=== PATIENT | female | born 1995 | race Caucasian/White ===

== ENCOUNTER 2019-01-14 17:46 | Emergency (ER) | payer MEDICAID ==
--- NOTE | 2019-01-14 17:49 | ER Report ---
History and Physical Time Seen By MD: 17:48 (OMKAR ZELAYA DO) HPI/ROS CHIEF COMPLAINT: Vaginal bleeding HISTORY OF PRESENT ILLNESS: Patient is a 24-year-old female at approximately 16 weeks' gestational age here with complaints of new onset vaginal bleeding which started shortly prior to arrival. Patient denies prior hi story of vaginal bleeding during . Patient was advised to proceed to the emergency department for evaluation. Patient reports that her bleeding has slowed down since time of onset. Orthostatics were stable at time of arrival. Patient describes that she has been having painless vaginal bleeding. REVIEW OF SYSTEMS: Constitutional: No fever, no chills. Eyes: No discharge. ENT: No sore throat. Cardiovascular: No chest pain, no palpitations. Respiratory: No cough, no shortness of breath. Gastrointestinal: No abdominal pain, no vomiting. Genitourinary: No hematuria, + vaginal bleeding Musculoskeletal: No back pain. Skin: No rashes. Neurological: No headache. (OMKAR ZELAYA DO) Allergies: Coded Allergies: No Known Allergies (Verified Allergy, Unknown, 01/14/19) Home Meds Active Scripts Ondansetron 4 Mg Odt (ONDANSETRON 4 MG ODT) 4 Mg Tab.rapdis, 4 MG PO Q6H PRN for NAUSEA/VOMITING, #15 TAB Prov:SHANNON BOOTHE DO 01/14/19 Reported Medications Vits W-Ca,Fe,Fa(<1MG) ( VITAMINS) 1 Each Tablet, 1 EA PO DAILY, TAB 01/14/19 Constitutional Vital Sign - Last 24 Hours 01/14/19 01/14/19 01/14/19 01/14/19 18:16 18:19 18:20 18:30 Pulse 99 84 112 B/P (MAP) 122/91 (101) 125/90 (102) 126/73 (90) 115/77 (90) 01/14/19 01/14/19 01/14/19 01/14/19 18:33 18:46 18:51 19:00 Temp 98.3 Pulse 112 86 84 Resp 14 B/P (MAP) 120/85 112/73 (86) Pulse Ox 95 95 98 O2 Delivery Room Air 01/14/19 01/14/19 01/14/19 01/14/19 19:06 19:21 19:36 19:51 Pulse 83 86 ? Pulse Ox 99 94 01/14/19 01/14/19 01/14/19 01/14/19 20:06 20:21 20:36 20:41 Pulse 93 86 82 102 Pulse Ox 98 91 97 97 01/14/19 20:56 Pulse 75 Pulse Ox 96 (KINSHANNON M DO) Physical Exam General Appearance: The patient is alert, has no immediate need for airway protection and no signs of toxicity. NAD Eyes: Pupils equal and round no pallor or injection. ENT, Mouth: Mucous membranes are moist. Respiratory: There are no retractions, lungs are clear to auscultation. Cardiovascular: Regular rate and rhythm. Gastrointestinal: Abdomen is soft and non tender, no masses, bowel sounds normal. Neurological: No focal neuro findings Skin: Warm and dry, no rashes. Musculoskeletal: Neck is supple non tender. Extremities are nontender, nonswollen and have full range of motion. DIFFERENTIAL DIAGNOSIS: After history and physical exam differential diagnosis was considered for vaginal bleeding including but not limited to ectopic , menses, miscarriage, and dysfunctional uterine bleeding. (OMKAR ZELAYA DO) Medical Decision Making Data Points Result Diagram: 01/14/19 1828 01/14/19 1828 Laboratory Hematology Test 01/14/19 18:11 01/14/19 18:28 Urine Color Red Urine Clarity Cloudy Urine pH 6.0 pH (4.8-9.5) Urine Specific [place] 1.024 Urine Protein 30 mg/dL (NEGATIVE) Urine Glucose (UA) Negative mg/dL (NEGATIVE) Urine Ketones Negative mg/dL (NEGATIVE) Urine Blood Large (NEGATIVE) Urine Nitrite Negative (NEGATIVE) Urine Bilirubin Negative (NEGATIVE) Urine Urobilinogen Negative mg/dL (0.2-1.9) Urine Leukocyte Esterase Trace (NEGATIVE) Urine RBC 135 /HPF (0-2/HPF) Urine WBC 21 /HPF (0-5/HPF) Urine Squamous Epithelial Cells Many /LPF (</=FEW) Urine Bacteria Few /HPF (NONE-FEW) Urine Mucus Few /HPF (NONE-FEW) Red Blood Count 4.82 M/uL (4.17-5.56) Mean Corpuscular Volume 87.1 fL (80.0-96.0) Mean Corpuscular Hemoglobin 29.3 pg (26.0-33.0) Mean Corpuscular Hemoglobin Concent 33.6 g/dL (32.0-36.0) Red Cell Distribution Width 15.6 % (11.5-14.5) Mean Platelet Volume 7.2 fL (7.2-11.1) Neutrophils (%) (Auto) 73.4 % (39.4-72.5) Lymphocytes (%) (Auto) 17.9 % (17.6-49.6) Monocytes (%) (Auto) 6.2 % (4.1-12.4) Eosinophils (%) (Auto) 2.0 % (0.4-6.7) Basophils (%) (Auto) 0.5 % (0.3-1.4) Nucleated RBC Relative Count (auto) 0.0 /100WBC Neutrophils # (Auto) 7.2 K/uL (2.0-7.4) Lymphocytes # (Auto) 1.8 K/uL (1.3-3.6) Monocytes # (Auto) 0.6 K/uL (0.3-1.0) Eosinophils # (Auto) 0.2 K/uL (0.0-0.5) Basophils # (Auto) 0.0 K/uL (0.0-0.1) Nucleated RBC Absolute Count (auto) 0.00 K/uL Prothrombin Time 12.6 seconds (12.0-14.4) Prothromb Time International Ratio 0.94 Activated Partial Thromboplast Time 32 seconds (23-35) Sodium Level 136 mmol/L (137-145) Potassium Level 3.7 mmol/L (3.5-5.0) Chloride Level 101 mmol/L (98-107) Carbon Dioxide Level 26 mmol/L (22-31) Blood Urea Nitrogen 12 mg/dl (7-18) Creatinine 0.50 mg/dl (0.52-1.04) Glomerular Filtration Rate Calc > 60.0 Random Glucose 88 mg/dl (75-110) Calcium Level 9.0 mg/dl (8.4-10.2) Total Bilirubin 0.2 mg/dl (0.2-1.3) Aspartate Amino Transf (AST/SGOT) 14 U/L (0-35) Alanine Aminotransferase (ALT/SGPT) 13 U/L (0-56) Alkaline Phosphatase 44 U/L (0-126) Total Protein 7.9 g/dl (6.3-8.2) Albumin 4.3 g/dl (3.5-5.0) Human Chorionic Gonadotropin, Quant 38071 mIU/ml Chemistry Test 01/14/19 18:11 01/14/19 18:28 Urine Color Red Urine Clarity Cloudy Urine pH 6.0 pH (4.8-9.5) Urine Specific [place] 1.024 Urine Protein 30 mg/dL (NEGATIVE) Urine Glucose (UA) Negative mg/dL (NEGATIVE) Urine Ketones Negative mg/dL (NEGATIVE) Urine Blood Large (NEGATIVE) Urine Nitrite Negative (NEGATIVE) Urine Bilirubin Negative (NEGATIVE) Urine Urobilinogen Negative mg/dL (0.2-1.9) Urine Leukocyte Esterase Trace (NEGATIVE) Urine RBC 135 /HPF (0-2/HPF) Urine WBC 21 /HPF (0-5/HPF) Urine Squamous Epithelial Cells Many /LPF (</=FEW) Urine Bacteria Few /HPF (NONE-FEW) Urine Mucus Few /HPF (NONE-FEW) White Blood Count 9.8 k/uL (4.5-11.0) Red Blood Count 4.82 M/uL (4.17-5.56) Hemoglobin 14.1 g/dL (12.0-16.0) Hematocrit 42.0 % (34.0-47.0) Mean Corpuscular Volume 87.1 fL (80.0-96.0) Mean Corpuscular Hemoglobin 29.3 pg (26.0-33.0) Mean Corpuscular Hemoglobin Concent 33.6 g/dL (32.0-36.0) Red Cell Distribution Width 15.6 % (11.5-14.5) Platelet Count 432 K/uL (150-450) Mean Platelet Volume 7.2 fL (7.2-11.1) Neutrophils (%) (Auto) 73.4 % (39.4-72.5) Lymphocytes (%) (Auto) 17.9 % (17.6-49.6) Monocytes (%) (Auto) 6.2 % (4.1-12.4) Eosinophils (%) (Auto) 2.0 % (0.4-6.7) Basophils (%) (Auto) 0.5 % (0.3-1.4) Nucleated RBC Relative Count (auto) 0.0 /100WBC Neutrophils # (Auto) 7.2 K/uL (2.0-7.4) Lymphocytes # (Auto) 1.8 K/uL (1.3-3.6) Monocytes # (Auto) 0.6 K/uL (0.3-1.0) Eosinophils # (Auto) 0.2 K/uL (0.0-0.5) Basophils # (Auto) 0.0 K/uL (0.0-0.1) Nucleated RBC Absolute Count (auto) 0.00 K/uL Prothrombin Time 12.6 seconds (12.0-14.4) Prothromb Time International Ratio 0.94 Activated Partial Thromboplast Time 32 seconds (23-35) Glomerular Filtration Rate Calc > 60.0 Calcium Level 9.0 mg/dl (8.4-10.2) Total Bilirubin 0.2 mg/dl (0.2-1.3) Aspartate Amino Transf (AST/SGOT) 14 U/L (0-35) Alanine Aminotransferase (ALT/SGPT) 13 U/L (0-56) Alkaline Phosphatase 44 U/L (0-126) Total Protein 7.9 g/dl (6.3-8.2) Albumin 4.3 g/dl (3.5-5.0) Human Chorionic Gonadotropin, Quant 88204 mIU/ml Coagulation Test 01/14/19 18:28 Prothrombin Time 12.6 seconds Prothromb Time International Ratio 0.94 Activated Partial Thromboplast Time 32 seconds Urinalysis Test 01/14/19 18:11 Urine Color Red Urine Clarity Cloudy Urine pH 6.0 pH (4.8-9.5) Urine Specific [place] 1.024 Urine Protein 30 mg/dL (NEGATIVE) Urine Glucose (UA) Negative mg/dL (NEGATIVE) Urine Ketones Negative mg/dL (NEGATIVE) Urine Blood Large (NEGATIVE) Urine Nitrite Negative (NEGATIVE) Urine Bilirubin Negative (NEGATIVE) Urine Urobilinogen Negative mg/dL (0.2-1.9) Urine Leukocyte Esterase Trace (NEGATIVE) Urine RBC 135 /HPF (0-2/HPF) Urine WBC 21 /HPF (0-5/HPF) Urine Squamous Epithelial Cells Many /LPF (</=FEW) Urine Bacteria Few /HPF (NONE-FEW) Urine Mucus Few /HPF (NONE-FEW) (SHANNON BOOTHE DO) EKG/Imaging Imaging Results: Ultrasound of the transvaginal and transabdominal greater than 14 weeks was obtained. The results of the study are Cervix ultrasound Indication: Vaginal bleeding. Comparison: None. FINDINGS: Placenta: Fundal without focal normality. Heart rate: 150 at seven minutes. age from the OB ultrasound 17 weeks and three days. Amniotic fluid index: Not measured. Subjectively normal. Cervix is closed and measures 4.4 cm. No funneling, placenta previa, vasa previa or cerclage.. IMPRESSION: Closed cervix measuring 4.4 cm. No funneling. OB Ultrasound > 14 weeks with anatomic evaluation HISTORY: Vaginal bleeding. 16 weeks . COMPARISON STUDIES: None available FINDINGS: Intrauterine gestations: one presentation: Transverse. The head is in the right side of the bicornuate uterus with the feet on the left side. heart rate: 150 bpm Amniotic fluid index: Not measured. Subjectively normal. Placenta: Fundal without previa. 8.3 cm from the cervical os. Uterus: gravid, otherwise normal Maternal adnexa: Right ovary is visualized and appears normal. Small cyst. Left ovary was not visualized. Cervix: 4.4 cm and closed. Gestational Parameters: BPD: 3.6 cm 17 weeks and zero days HC: 13.5 cm 17 weeks and zero days AC: 12.1 cm 17 weeks and six days FL: 2.5 cm 17 weeks and three days Average ultrasound age (AUA): 17 weeks and three days RENO: 06/21/2019 by ultrasound and 07/02/2019 clinically. Estimated weight (EFW): 198 g EFW: Greater than 98 percentile Anatomic Survey: Limited survey. Portions of the brain face visualized are normal in some portions are obscured. Four-chamber heart appeared normal. The stomach, kidneys, bladder, three-vessel cord, placental cord insertion, arms and legs appear to be normal. The other structures are not well visualized. IMPRESSION: 1. Single live intrauterine gestation; estimated ultrasound age 17 weeks and three days.. 2. No indication of acute abnormality. 3. 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 The head of the fetus of the right side and the feet on left side. 4. Placenta is fundal without focal normality. 5. Limited evaluation shows no gross abnormality is however some structures not visualized. This could be followed up on the next OB ultrasound. 6. The estimated weight is greater than 98 percentile. 7. Other limited findings as above. The study was read by the radiologist. I viewed the images myself on the PACS system. (SHANNON BOOTHE DO) ED Course/Re-evaluation ED Course Patient is a 24-year-old female at 16 weeks gestation with complaints of new onset of vaginal bleeding which was painless and has since slowed down. Orthostatics are stable. Patient was given IV fluid bolus, transvaginal ultrasound was ordered. CBC was stable. Patient was signed out to Dr. Boothe at shift change pending further workup Decision to Disposition Date: Jan 14, 2019 Decision to Disposition Time: 19:00 (OMKAR ZELAYA DO) ED Course Care was assumed at shift change from Dr. Harry with ultrasounds pending. The ultrasounds were unremarkable. The results were discussed with the patient. Patient was advised bed rest and increase fluid intake and follow-up with [facility]OC[facility] on Thursday. Patient and her felt that she should be admitted. I discussed the case with Dr. Yoon Hernandez, [facility] ASSOCIATE on-call. She will come speak with the patient. 01/14/2019 9:33:19 pm case discussed with [facility]TENS[facility] ASSOCIATE on-call, Dr. Yoon Hernandez. She will come discussed options with the patient, considering observation/admission as appropriate. Decision to Disposition Date: Jan 14, 2019 Decision to Disposition Time: 21:33 (SHANNON BOOTHE DO) Depart Departure Latest Vital Signs Vital Signs Date Time Temp Pulse Resp B/P (MAP) Pulse Ox O2 Delivery O2 Flow Rate FiO2 01/14/19 20:56 75 96 01/14/19 19:00 112/73 (86) 01/14/19 18:33 98.3 14 Room Air (SHANNON BOOTHE DO) Impression: Primary Impression: Vagina bleeding Additional Impression: 16 weeks gestation of Condition: Improved Disposition: HOME OR SELF-CARE New Scripts Ondansetron 4 Mg Odt (ONDANSETRON 4 MG ODT) 4 Mg Tab.rapdis 4 MG PO Q6H PRN for NAUSEA/VOMITING, #15 TAB Prov: SHANNON BOOTHE DO 01/14/19 Patient Instructions: Threatened Miscarriage (ED) Additional Instructions: Remain at bedrest for the weekend. Follow up with your [facility]TENSION ASSOCIATE early next week Use Zofran as needed for nausea control Problem Qualifiers OMKAR ZELAYA DO Jan 14, 2019 17:49 SHANNON BOOTHE DO Jan 14, 2019 20:30
[2019-01-14] MEDS ORDERED: NS(*) 0.9% 1000 ML BAG 1,000 ML IV ONE (17:50)
[2019-01-14 18:36] LABS: PLATELET COUNT, AUTOMATED 432 K/uL (150-450)
[2019-01-14] MEDS ORDERED: PREN-127 PO (18:37)
[2019-01-14 18:47] LABS: INR 0.94
[2019-01-14 19:00] VITALS: BP 112/73
[2019-01-14] MEDS ORDERED: ACETAMINOPHEN 325 MG TAB PO ONE (21:00)
--- NOTE | 2019-01-14 21:04 | RADIOLOGY IMAGING REPORT ---
FACILITY: [facility] PATIENT NAME: Marely Alvarez : 1995 MR: [id number] V: [id number] EXAM DATE: ORDERING PHYSICIAN: OMKAR ZELAYA TECHNOLOGIST: Location: [facility] [place] Patient: Marely Alvarez : 1995 Visit/Account:[id number] Date of Sevice: 01/14/2019 OB Ultrasound > 14 weeks with anatomic evaluation HISTORY: Vaginal bleeding. 16 weeks . COMPARISON STUDIES: None available FINDINGS: Intrauterine gestations: one presentation: Transverse. The head is in the right side of the bicornuate uterus with the feet on the left side. heart rate: 150 bpm Amniotic fluid index: Not measured. Subjectively normal. Placenta: Fundal without previa. 8.3 cm from the cervical os. Uterus: gravid, otherwise normal Maternal adnexa: Right ovary is visualized and appears normal. Small cyst. Left ovary was not visua lized. Cervix: 4.4 cm and closed. Gestational Parameters: BPD: 3.6 cm 17 weeks and zero days HC: 13.5 cm 17 weeks and zero days AC: 12.1 cm 17 weeks and six days FL: 2.5 cm 17 weeks and three days Average ultrasound age (AUA): 17 weeks and three days RENO: 06/21/2019 by ultrasound and 07/02/2019 clinically. Estimated weight (EFW): 198 g EFW: Greater than 98 percentile Anatomic Survey: Limited survey. Portions of the brain face visualized are normal in some portions are obscured . Four-chamber heart appeared normal. The stomach, kidneys, bladder, three-vessel cord, place ntal cord insertion, arms and legs appear to be normal. The other structures are not well visualized . IMPRESSION: 1. Single live intrauterine gestation; estimated ultrasound age 17 weeks and three days.. 2. No indication of acute abnormality. 3. 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 The head of the fetus of the right side and the feet on left side. 4. Placenta is fundal without focal normality. 5. Limited evaluation shows no gross abnormality is however some structures not visualized. T his could be followed up on the next OB ultrasound. 6. The estimated weight is greater than 98 percentile. 7. Other limited findings as above. Report Dictated By: Shahriar Alcala at 01/14/2019 8:54 PM Report E-Signed By: hSahriar Alcala at 01/14/2019 9:00 PM WSN:[email or web address]
--- NOTE | 2019-01-14 21:07 | RADIOLOGY IMAGING REPORT ---
[place] [facility] [place] Marely Alvarez : 1995 MR: [id number] V: [id number] EXAM DATE: ORDERING PHYSICIAN: OMKAR ZELAYA TECHNOLOGIST: Location: [facility] Patient: Marely Alvarez : 1995 Visit/Account:[id number] Date of Sevice: 01/14/2019 Cervix ultrasound Indication: Vaginal bleeding. Comparison: None. FINDINGS: Placenta: Fundal without focal normality. Heart rate: 150 at seven minutes. age from the OB ultrasound 17 weeks and three days. Amniotic fluid index: Not measured. Subjectively normal. Cervix is closed and measures 4.4 cm. No funneling, placenta previa, vasa previa or cerclage.. IMPRESSION: Closed cervix measuring 4.4 cm. No funneling. Report Dictated By: Shahriar Alcala at 01/14/2019 9:00 PM Report E-Signed By: Shahriar Alcala at 01/14/2019 9:02 PM WSN:[id number]
[2019-01-14] MEDS ORDERED: ONDA4TAB9 PO (22:03)
[2019-01-14] MEDS ORDERED: ONDANSETRON 4 MG ODT TH SL ONE (22:05)
--- NOTE | 2019-01-14 22:47 | History & Physical ---
History of Present Illness Age of Patient: 24 : 4 Para or TPAL: 2103 EDC per LMP: Jul 02, 2019 Estimated Gestational Age: 15.6 Chief Complaint painless vaginal bleeding History of Present Illness Ms. Alvarez is a 24yo at 15.6 who presents to ED after calling for painless vaginal bleeding. Reports that she was not particularly active today, though has three children under age 5 at home. She reports noticing that her underwear felt wet, and that she had bled onto her underwear and the shorts she was wearing. She states that it looked like "a lot" of blood, dark red in color. She went to the bathroom after she noticed the blood and saw a few drops in the toilet. After wiping, she noted dark red blood on the toilet paper, but felt like any active bleeding stopped. She denied any pain save for headache prior to the bleeding. She denies any cramping abdominal pain. No current nausea/emesis. No fevers/chills. She reports that this has been a relatively uncomplicated save for significantly more nausea and fatigue than she experienced in her last pregnancies. History Patient's Blood Type: A Positive Group B Strep Screen: Unknown Obstetrical History: FT x 2, uncomplicated 36 week x 1, spontaneous labor Past Medical History: Denies significant medical history. Allergies: Coded Allergies: No Known Allergies (Verified Allergy, Unknown, 01/14/19) Social History: In a supportive relationship with her partner, and father of her three children. No T/E/D. Med Rec Home Meds Active Scripts Ondansetron 4 Mg Odt (ONDANSETRON 4 MG ODT) 4 Mg Tab.rapdis, 4 MG PO Q6H PRN for NAUSEA/VOMITING, #15 TAB Prov:SHANNON SANDERSON DO 01/14/19 Reported Medications Vits W-Ca,Fe,Fa(<1MG) ( VITAMINS) 1 Each Tablet, 1 EA PO DAILY, TAB 01/14/19 Review of Systems All Systems Reviewed/Normal: Yes, Except as Noted Constitutional: No Fever, No Weight Loss, No Weight Gain, No Chills, No Night Sweats, No Other Neurological: No Syncope, No Confusion, No Weakness, No Dizziness, No Slurred Speech, No Other Eyes: No Vision Change, No Loss of Vision, No Photophobia, No Other ENT: No Hearing Loss, No Sinus Congestion, No Sore Throat, No Ear Ache, No Tinnitus, No Other Respiratory: No Shortness of Breath, No Cough, No Wheezing, No Other Gastrointestinal: No Nausea, No Vomiting, No Diarrhea, No Dysphagia, No Constipation, No Early Satiety, No Hematemesis, No Hematochezia, No Melena, No Abdominal Pain, No Other Genitourinary: Other (vaginal bleeding); No Dysuria, No Hematuria, No Urinary Incontinence Musculoskeletal: No Pain, No Sprain, No Strain, No Impaired Mobility, No Other Psychiatric: No Depression, No Anxiety, No Other Exam General Exam Vital Signs Vital Signs Date Time Temp Pulse Resp B/P (MAP) Pulse Ox O2 Delivery O2 Flow Rate FiO2 01/14/19 20:56 75 96 01/14/19 19:00 112/73 (86) 01/14/19 18:33 98.3 14 Room Air General Apperance: Alert/Awake/No Acute Distress Neuro: No Gross deficits Abdomen: Soft, Non-Tender, Non-Distended, Gravid - Non-Tender Extremities: No Cyanosis,Clubbing or Edema Integumentary: Skin Intact without Lesions or Rash Psychological: Alert & Oriented X3, Appropriate Mood & Affect Medical Decision Making Data Points Result Diagram: 01/14/19182701/14/191827 Imaging Ultrasound/Imaging Ultrasound (transvaginal and transabdominal views): Gonzalez IUP, bicornuate uterus, cervical length 4.0cm, closed. No e/o subchorionic hematoma, placental abruption. EGA 17.3 Pre-Admit Course Medical Record Review: Yes VTE Prophylasis: Adult Deep Vein Thrombosis/Pulmonary: No Assessment and Plan Problems: (1) Vagina bleeding Status: Acute Assessment & Plan: 24yo at 15.6 by RENO 06/21/19, with painless vaginal bleeding. RH positive. and maternal status reassuring. Bleeding has significantly slowed, patient is hemodynamically stable, and ultrasound reassuring. Patient also reports ongoing significant nausea/emesis at home as well as bothersome facial rash. Plan: discharge home on pelvic rest and bleeding precautions rx given for Zofran for nausea by ED physician recommend hydrocortisone ointment for facial rash patient instructed to call OB office on Thursday for f/u appointment. NATASHA HERNADEZ MD Jan 14, 2019 22:47
== END 2019-01-14 22:08 | disposition home or self-care (01) ==
LOC: ER 17:52
DX: O20.9 Hemorrhage in early pregnancy, unspecified (principal); Z3A.16 16 weeks gestation of pregnancy
CPT/HCPCS: 76805; 76817; 81001; 84702; 85025; 85610; 85730; 86900; 86901; J7030; 82040; 82247; 82310; 82374; 82435; 82565; 82947; 84075; 84132; 84155; 84295; 84450; 84460; 84520

== ENCOUNTER 2019-06-03 14:39 | Outpatient (CLI) | payer MEDICAID ==
[~2019-06-03] VITALS: Ht 167.6 cm; Wt 88.5 kg
[~2019-06-03 14:39] MED LIST: ONDA4TAB9 PO; PREN-127 PO
[2019-06-03 15:58] VITALS: BP 121/80; Ht 167.6 cm; Wt 88.5 kg
== END 2019-06-03 17:10 | disposition home or self-care (01) ==
LOC: L&D 14:39 → UNDOADMIN 14:39 → OB 14:39 → UNDODISIN 17:10 → L&D 17:10 → EDSTATUS 06-09 07:17
PROVIDERS: ATTEND Obstetrics & Gynecology
DX: O26.893 Other specified pregnancy related conditions, third trimester (principal); Z3A.36 36 weeks gestation of pregnancy
CPT/HCPCS: 59025

== ENCOUNTER 2019-06-15 05:18 | Inpatient (IN) | payer MEDICAID ==
[~2019-06-15] VITALS: Ht 165.1 cm; Wt 89.4 kg
[2019-06-15] MEDS ORDERED: LR(*) 1000 ML BAG 1,000 ML IV PRN (05:39)
[2019-06-15] MEDS ORDERED: OXYTOCIN 30 UNIT/NS 500 ML 500 ML IV PRN ×3 (05:39→12:20)
[2019-06-15] MEDS ORDERED: FAMOTIDINE(*) 20MG/50ML PREMIX 50 ML IVPB PRN (05:39)
[2019-06-15] MEDS ORDERED: LIDOCAINE/SOD BICARB 8.4% SYR SC PRN (05:40)
[2019-06-15] MEDS ORDERED: LIDOCAINE 1% LOCAL 300 MG/30ML INJ PRN (05:40)
[2019-06-15] MEDS ORDERED: METOCLOPRAMIDE 10 MG/2 ML SDV IVP PRN (05:40)
[2019-06-15] MEDS ORDERED: FLUSH 10 ML SYR IVP PRN (05:40)
[2019-06-15] MEDS ORDERED: fentaNYL CITR 100 MCG/2 ML AMP IVP PRN (05:40)
[2019-06-15 06:45] VITALS: BP 121/63; Ht 165.1 cm; Wt 89.4 kg
[2019-06-15 06:52] LABS: PLATELET COUNT, AUTOMATED 306 K/uL (150-450)
[2019-06-15] MEDS ORDERED: ACETAMINOPHEN 325 MG TAB PO PRN (16:55)
[2019-06-15] MEDS ORDERED: LANOLIN OINT 7 GM TUBE TP PRN (16:55)
[2019-06-15] MEDS ORDERED: BENZOCAINE 20% 60 ML BTL TP PRN (16:55)
[2019-06-15] MEDS ORDERED: GLYCERIN/WITCH HAZEL LEAF 1 PK TP PRN (16:55)
[2019-06-15] MEDS ORDERED: MAGNESIUM HYDROXIDE* 30ML UDCP PO PRN (16:55)
[2019-06-15] MEDS ORDERED: HYDROCORTISONE 2.5% CR 30GM TB PR PRN (16:55)
[2019-06-15] MEDS: APAP/HYDROCODONE 325/5 TAB PO PRN ×2 (17:10→22:07)
[2019-06-15] MEDS: IBUPROFEN 800 MG TAB PO SCH (17:10)
[2019-06-15] MEDS ORDERED: MISOPROSTOL 200 MCG TAB PR ONE (17:15)
--- NOTE | 2019-06-15 17:16 | OB Delivery Note ---
Delivery Note Vaginal Delivery Type: Spont. Vaginal Delivery Delivery Date: Jun 15, 2019 Delivery Time: 15:55 Estimated Gestational Age(wks): 38.4 Delivery Anesthesia: Other (unmedicated ) Sex: Female Weight (gms): 7.10 Apgars: 1 Minute (8), 5 Minute (9) Estimated Blood Loss: 250 Notes: I was called to delivery room by nurses because pts primary Winderman was unavailable. When I presented to the room pt was in visible distress due to pain. SVE showed that the patient was completed dilated with bulging bag and +1 station. Pt requested AROM to expedite delivery. Request granted. AROM without difficulty and clear fluid. The patient immediately had desire to push and spontaneously delivered a viable female in the ENEDELIA position. Nose and mouth were bulb suctioned and 3VC clamped and cut. placed on mom's chest. No laceration were noted. Placenta delivered spontaneously with trailing membranes that were teased out using ring forceps. Pitocin was increased to bolus rate. Uterus firm below umbilicus. EBL 250 cc. I performed entire delivery and repair unassisted. Act Tutor in Attendence: TITO Guevara DO Jun 15, 2019 17:16
[2019-06-15 20:15] VITALS: BP 125/83
[2019-06-15] MEDS: DOCUSATE CALCIUM 240 MG CAP PO SCH (22:07)
[2019-06-16 01:00] VITALS: BP 99/55
[2019-06-16] MEDS: IBUPROFEN 800 MG TAB PO SCH ×3 (02:45→16:57)
[2019-06-16 07:35] VITALS: BP 117/64
--- NOTE | 2019-06-16 08:45 | OB/GYN Progress Note ---
OB Subjective Progress Notes Subjective Having pain in shoulders and upper chest but no SOB. Has improved over night. No nausea. Incisional pain tolerable. Bleeding light. GI: NEG Nausea : Voiding Well Pain: Mild OB Objective Physical Exam Vital Signs Date Time Temp Pulse Resp B/P (MAP) Pulse Ox O2 Delivery O2 Flow Rate FiO2 06/16/19 07:35 98.4 73 18 117/64 (81) 96 Room Air Intake and Output 06/16/19 07:04 Intake Total 2200 ml Balance 2200 ml Intake Oral 1000 ml IV Total 1200 ml # Voids 3 General Appearance: Alert/Awake/No Acute Distress Neurological: No Gross deficits Cardiovascular: Normal Rhythm & Peripheral Pulses, Regular Rate and Rhythm Respiratory: No Respiratory Distress, Clear to Auscultation Abdomen: Soft, Non-Tender, Non-Distended, Fundus Firm Incision: Clean, Dry, Intact, Dermabond Extremities: No Cyanosis,Clubbing or Edema Integumentary: Skin Intact without Lesions or Rash Psychological: Alert & Oriented X3, Appropriate Mood & Affect Result Diagram: 06/16/19 0651 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 Encouraged ambulation today and should continue to improve. If not will consider PE eval. (3) care and examination immediately after delivery GUERA GONZALEZ MD Jun 16, 2019 08:45
[2019-06-16] MEDS ORDERED: IBUP800T37 PO (09:17)
--- NOTE | 2019-06-16 09:17 | OB/GYN Progress Note ---
OB Subjective Progress Notes Subjective Feeling well. Pain well controlled and bleeding light. No problems other than fatigue. GI: NEG Nausea : Voiding Well Pain: Mild OB Objective Physical Exam Vital Signs Date Time Temp Pulse Resp B/P (MAP) Pulse Ox O2 Delivery O2 Flow Rate FiO2 06/16/19 07:35 98.4 73 18 117/64 (81) 96 Room Air Intake and Output 06/16/19 07:04 Intake Total 2200 ml Balance 2200 ml Intake Oral 1000 ml IV Total 1200 ml # Voids 3 General Appearance: Alert/Awake/No Acute Distress Neurological: No Gross deficits Eyes: Normal Extraocular Movement & Vison Cardiovascular: Normal Rhythm & Peripheral Pulses, Regular Rate and Rhythm Respiratory: No Respiratory Distress, Clear to Auscultation Abdomen: Soft, Non-Tender, Non-Distended, Fundus Firm Extremities: No Cyanosis,Clubbing or Edema Integumentary: Skin Intact without Lesions or Rash Psychological: Alert & Oriented X3, Appropriate Mood & Affect Result Diagram: 06/16/19 0651 Assessment and Plan 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 Home today. F/U in 6 weeks. Reviewed discharge instructions and precautions. GUERA GONZALEZ MD Jun 16, 2019 09:17
--- NOTE | 2019-06-16 09:19 | OB/GYN Discharge Summary ---
Discharge Summary Reason for Hosp/Final Diag: (1) care and examination immediately after delivery Hospital Course & Plan: Doing well. Home today. F/U in 6 weeks. Reviewed discharge instructions and precautions. Lates Vital Signs Vital Signs Date Time Temp Pulse Resp B/P (MAP) Pulse Ox O2 Delivery O2 Flow Rate FiO2 06/16/19 07:35 98.4 73 18 117/64 (81) 96 Room Air Weight (Pounds): 197 Result Diagram: 06/16/19 0651 Condition: Improved Discharge: Home, Self Residential Meds Active Scripts Ondansetron 4 Mg Odt (ONDANSETRON 4 MG ODT) 4 Mg Tab.rapdis, 4 MG PO Q6H PRN for NAUSEA/VOMITING, #15 TAB Prov:SHANNON SANDERSON Deedee DO 01/14/19 Reported Medications Vits W-Ca,Fe,Fa(<1MG) ( VITAMINS) 1 Each Tablet, 1 EA PO DAILY, TAB 01/14/19 Follow up Referrals: PRODUCTION SUPPORT MANAGER - In Two Weeks @ [facility] with GUERA CHARLES MD Follow up with: Dr. Charles [phone] Follow up in: 6 wks PP or PO Discharge Diet: As Tolerates Discharge Activity: As Tolerates, No Heavy Lifting x 6 wks, No Heavy Lifting > 10lb, Pelvic Rest Copies to: GUERA CHARLES MD ; GUERA CHARLES MD Jun 16, 2019 09:19
[2019-06-16] MEDS: DOCUSATE CALCIUM 240 MG CAP PO SCH (09:44)
[2019-06-16 12:01] VITALS: BP 101/51
== END 2019-06-16 19:32 | disposition home or self-care (01) | DRG 807 ==
LOC: OB 05:18
PROVIDERS: ADMIT Obstetrics & Gynecology; ATTEND Obstetrics & Gynecology
PROC: 10E0XZZ Delivery of Products of Conception, External Approach (ICD-10-PCS; principal; 2019-06-15)
PROC: 10907ZC Drainage of Amniotic Fluid, Therapeutic from Products of Conception, Via Natural or Artificial Opening (ICD-10-PCS; 2019-06-15)
DX: O80 Encounter for full-term uncomplicated delivery (principal); Z37.0 Single live birth; Z3A.38 38 weeks gestation of pregnancy
CPT/HCPCS: 36415; 85025; 85027; 86850; 86900; 86901; J2590; J7120